=== PATIENT | female | born 1965 | race Caucasian/White ===

== ENCOUNTER → 2022-06-06 | Day surgery (SDC) | payer OTHER | END | disposition home or self-care (01) | LOC: FMAMMOTONE 12:50 | PROVIDERS: ATTEND Obstetrics & Gynecology | PROC: 0HBT3ZX Excision of Right Breast, Percutaneous Approach, Diagnostic (ICD-10-PCS; principal; 2022-06-06) | DX: C50.911 Malignant neoplasm of unspecified site of right female breast (principal); D05.11 Intraductal carcinoma in situ of right breast; N60.91 Unspecified benign mammary dysplasia of right breast; N62 Hypertrophy of breast; N60.31 Fibrosclerosis of right breast; N64.89 Other specified disorders of breast; R92.0 Mammographic microcalcification found on diagnostic imaging of breast | CPT/HCPCS: 19081; 19082; 76098-TC-FY; 88305-TC; 88341-TC; 88342-TC; A4648 ==